=== PATIENT | female | born 1975 | race Caucasian/White ===

== ENCOUNTER 2017-02-28 20:19 | Emergency (ER) | payer SELFPAY ==
[~2017-02-28] VITALS: Ht 162.6 cm; Wt 81.8 kg
[2017-02-28 20:27] VITALS: Ht 162.6 cm; Wt 81.8 kg
== END 2017-02-28 22:07 | disposition left against medical advice (07) ==
LOC: E/R 20:19
DX: Z53.21 Procedure and treatment not carried out due to patient leaving prior to being seen by health care provider (principal)